=== PATIENT | female | born 1970 | race Caucasian/White ===

== ENCOUNTER 2022-05-31 19:54 | Emergency (ER) | payer OTHER, SELFPAY ==
[2022-05-31 20:01] VITALS: BP 142/84; PULSE 72; RESP 16; TEMP 36.4; O2SAT 99; BMI 21.1
--- NOTE | 2022-05-31 20:05 | DI.RAD.S_ITS ---
PROCEDURE: XR ANKLE RT MIN 3V INDICATIONS: injury TECHNIQUE: 3 views of the ankle were acquired. COMPARISON: [facility], CR, XR FOOT RT MIN 3V, 05/31/2022, 20:04. FINDINGS: Bones: No fractures or dislocations. Ankle mortise is normally aligned. No suspicious bony lesions. Soft tissues: There is a small tibiotalar joint effusion. Achilles tendon appears intact. IMPRESSION: 1. No fracture or dislocation. Dictated by: Myron Bonner M.D. on 05/31/2022 at 20:26 Approved by: Myron Bonner M.D. on 05/31/2022 at 20:28
--- NOTE | 2022-05-31 20:05 | DI.RAD.S_ITS ---
PROCEDURE: XR FOOT RT MIN 3V INDICATIONS: injury TECHNIQUE: 3 views of the foot were acquired. COMPARISON: None. FINDINGS: Bones: No fractures or dislocations. No suspicious bony lesions. Soft tissues: No tibiotalar joint effusion. Achilles tendon appears normal. IMPRESSION: 1. No fracture or dislocation. Dictated by: Myron Bonner M.D. on 05/31/2022 at 20:19 Approved by: Myron Bonner M.D. on 05/31/2022 at 20:19
--- NOTE | 2022-05-31 20:30 | ED_ITS ---
HPI - Extremity Injury (Lower) General Chief Complaint: Extremity Injury, Lower Stated Complaint: Ankle inj Time Seen by Provider: 05/31/22 19:56 Source: patient Mode of arrival: Wheelchair History of Present Illness HPI Narrative: 51-year-old female nonsmoker with noncontributory medical history presents with significant other and a chief complaint of an injury to her right ankle just prior to arrival. She was walking and stepped off an uneven piece sidewalk and rolled her right ankle. She states she heard a crack and now has pain on her lateral foot and ankle. Her pain is worse with ambulation and palpation and improves with rest. She denies other injuries such as knee, hip or back. She denies any numbness, tingling or weakness. She is otherwise well and free of complaint Related Data Home Medications Medication Instructions Recorded Confirmed glucosamine ##0 05/04/16 sulfate-methylsulfonylmethane 250 mg-250 mg capsule Allergies Allergy/AdvReac Type Severity Reaction Status Date / Time SULFA (sulfonamide) Allergy Unknown hives Uncoded 10/16/17 13:02 Review of Systems Review of Systems Narrative: GENERAL: Denies chills, fatigue, malaise, fever, sweats. HEENT: Denies sinus pain, ear pain, sore throat, difficulty swallowing, dizziness. RESPIRATORY: Denies dyspnea, cough, wheezing, hemoptysis, sputum. CARDIOVASCULAR: Denies chest pain, palpitations, orthopnea, edema, GASTROINTESTINAL: Denies nausea, vomiting, abdominal pain, diarrhea, constipation, melena. : Denies dysuria, frequency, incontinence, hematuria, urinary retention. MUSCULOSKELETAL: See HPI SKIN: Denies rash, skin lesions, or other NEUROLOGIC: Denies weakness, headache, numbness, change in speech, confusion, seizures, incoordination. PSYCHIATRIC: No concerning psychosocial issues. 12 point review of systems is negative except for those stated above Exam Narrative Exam Narrative: GEN: AOx3 and in mild distress EYES: Pupils are equal, round, and reactive to light and accommodation. Extraoccular muscles are intact bilaterally. There is no subconjunctival hemorrhage or exudate. CHEST: Lungs are clear to auscultation bilaterally and free of wheezes, rales, or rhonchi. Heart rate is regular rhythm, there are no murmurs, clicks, rubs, or gallops. There is no chest wall tenderness. ABD: Abdomen is soft and nontender. There is no guarding or rebound. Bowel sounds are normal in all 4 quadrants. There is no mass or organomegaly. EXT: Pain and swelling overlying lateral malleolus of right ankle, no ligamentous instability, no pain over anterior ankle, medial malleolus, calcaneus or 5th metatarsal. No pain with squeeze test. No pain at proximal fibula. No pain in knee or hip. Closed, isolated and neurovascularly intact SKIN: Warm, pink, and dry. No erythema or rash Initial Vital Signs Initial Vital Signs: Vital Signs Temperature 97.5 F L 05/31/22 20:01 Pulse Rate 72 05/31/22 20:01 Respiratory Rate 16 05/31/22 20:01 Blood Pressure 142/84 H 05/31/22 20:01 Pulse Oximetry 99 05/31/22 20:01 Oxygen Delivery Method 05/31/22 20:01 Procedures Orthopedic Splinting/Casting Injury #1: Side: right Lower Extremity Injury Location: ankle Lower Extremity Immobilizer: AirCast Post splinting neuro exam: intact Post splinting vascular exam: intact Placed by: Nursing Course Orders Ordered: ED Orders 05/31/22 20:05 XR ankle RT min 3V Stat XR foot RT min 3V Stat Vital Signs Vital signs: Vital Signs - 8 hr 05/31/22 20:01 Temperature 97.5 F L Pulse Rate 72 Respiratory Rate 16 Blood Pressure 142/84 H Pulse Oximetry 99 Oxygen Delivery Method Room Air MDM - Extremity Injury (Lower) Imaging Data Extremity x-ray #1: Radiologist's Impression: Angela Abarca??51??F??1970 ? Allergy/Adv: [SULFA (sulfonamide)] Close Foot X-Ray (Signed) Myron Bonner - 05/31/22 Ankle X-Ray (Signed) Myron Bonner - 05/31/22 Launch?[address] [address] XRay Report Signed Patient: Angela Abarca MR#: [id number] : 1970 Acct:[id number] Age/Sex: 51 / F Date of Service: 05/31/22 Loc: ED Accession Number: [id number] ?? Procedure: XR ankle RT min 3V Ordering Provider: Liborio Milian D.O. PROCEDURE:? XR ANKLE RT MIN 3V ? INDICATIONS:? injury ? TECHNIQUE:? 3 views of the ankle were acquired.? ? COMPARISON:? [facility], CR, XR FOOT RT MIN 3V, 05/31/2022, 20:04. ? FINDINGS:? ? Bones:? No fractures or dislocations.? Ankle mortise is normally aligned.? No suspicious bony lesions.? ? Soft tissues:? There is a small tibiotalar joint effusion.? Achilles tendon appears intact.? ? ? IMPRESSION:? ? 1.? No fracture or dislocation. ? ? Dictated by: Myron Bonner M.D. on 05/31/2022 at 20:26 ? ? Approved by: Myron Bonner M.D. on 05/31/2022 at 20:28 ? Extremity x-ray #2: Radiologist's Impression: Angela Abarca??51??F??1970 ? Allergy/Adv: [SULFA (sulfonamide)] Close Foot X-Ray (Signed) Myron Bonner - 05/31/22 Ankle X-Ray (Signed) Myron Bonner - 05/31/22 Launch?[place] [address] XRay Report Signed Patient: Angela Abarca MR#: [id number] : 1970 Acct:[id number] Age/Sex: 51 / F Date of Service: 05/31/22 Loc: ED Accession Number: [id number] ?? Procedure: XR foot RT min 3V Ordering Provider: Liborio Milian D.O. PROCEDURE:? XR FOOT RT MIN 3V ? INDICATIONS:? injury ? TECHNIQUE:? 3 views of the foot were acquired.? ? COMPARISON:? None. ? FINDINGS:? ? Bones:? No fractures or dislocations.? No suspicious bony lesions.? ? Soft tissues:? No tibiotalar joint effusion.? Achilles tendon appears normal.? ? ? IMPRESSION:? ? 1. No fracture or dislocation. ? ? Dictated by: Myron Bonner M.D. on 05/31/2022 at 20:19 ? ? Approved by: Myron Bonner M.D. on 05/31/2022 at 20:19 ? Discharge Plan Departure Patient Disposition: Home Clinical Impression: Ankle sprain and strain Instructions: DI for Ankle Sprain Activity Restrictions/Additional Instructions: *You have been diagnosed with [ right ankle sprain. As we discussed your history and physical exam are reassuring and x-rays demonstrate no evidence of fracture or dislocation.] *What to do: *Please wear the splint for comfort for the next few days. Consider use of ice for the 1st 24-48 hours, elevate to the level above your heart as often as possible and take Tylenol and or Motrin for pain and swelling *Please follow up with your primary care provider in 5-7 days, call for an appointment. Let them know you were seen in the Emergency Department and that we ask that you be seen in follow up. We will electronically transmit a record of today's note if your PCP is in our system *If you do not have a primary care provider please contact the [facility] Resource line at [phone] They will ask some questions about your medical history and help get you set up with a doctor in the community. *Return to Emergency Department if you should have any new, worsening or concerning symptoms Prescriptions: No Action glucosamine sulfate-msm 250-250 mg capsule Qty: 0 Referrals: Fabiola Bueno DO [Primary Care Provider] - Visit Report Forms: Patient Portal/API
== END 2022-05-31 20:54 | disposition home or self-care (01) ==
PROVIDERS: Emergency Provider Emergency Medicine; Family Provider Family Medicine; PCP Family Medicine
DX: S93.401A Sprain of unspecified ligament of right ankle, initial encounter (principal); W18.40XA Slipping, tripping and stumbling without falling, unspecified, initial encounter
CPT/HCPCS: 73610; 73630; 99281; 99283